=== PATIENT | male | born 1960 | race American Indian/Alaskan Native ===

== ENCOUNTER 2022-04-10 14:55 | Emergency (ER) | payer MEDICARE ==
[2022-04-10 17:01] LABS: Alanine Aminotransferase 41 units/L (7-56); Albumin 4.1 g/dL (3.9-5); BUN/Creatinine Ratio 15; Blood Urea Nitrogen 19 mg/dL (9-20); Calcium 8.9 mg/dL (8.4-10.2); Hemolysis Index 0
[2022-04-10 17:11] LABS: Basophils # (Auto) 0.1 K/mm3 (0.0-0.1); Basophils % (Auto) 0.6 % (0.0-1.8); Eosinophils % (Auto) 0.1 % (0.0-4.3); Hematocrit 34.8 % (35.5-45.6); Hemoglobin 11.9 gm/dl (11.8-15.2); Lymphocytes # (Auto) 2.1 K/mm3 (1.2-5.4); Lymphocytes % (Auto) 19.9 % (13.4-35.0); Mean Corpuscular HGB Conc 34 % (32-34); Mean Corpuscular Volume 89 fl (84-94); Monocytes # (Auto) 1.2 K/mm3 (0.0-0.8); Monocytes % (Auto) 11.5 % (0.0-7.3); Platelet Count 205 K/mm3 (140-440); Red Cell Distribution Width 13.4 % (13.2-15.2)
--- NOTE | 2022-04-11 08:33 | Emergency Department Report ---
ED General Adult HPI - General Chief complaint: Weakness Stated complaint: WEAK Time Seen by Provider: 04/11/22 08:09 Source: patient Mode of arrival: Ambulatory Limitations: No Limitations - History of Present Illness Initial comments: Patient is a 61-year-old male that came to the ER last night complaining of weakness after working in the sun all day. He has been in the ER over 8 hours at the time provider is seeing him. He states that he feels better. He is ambulatory, nontoxic [id number]. He is taking p.o. Patient's vital signs noted to be normal. He has no chest pain. No shortness of breath. No fever or chills. No abdominal pain. No nausea vomiting diarrhea. Patient denies polyuria polydipsia polyphagia. He reports being compliant with his home medications -: Sudden, hour(s) Associated Symptoms: denies other symptoms, malaise Treatments Prior to Arrival: none - Related Data Allergies Allergy/AdvReac Type Severity Reaction Status Date / Time levofloxacin [From Levaquin] Allergy Itching Verified 04/10/22 15:45 ED Review of Systems ROS: Stated complaint: WEAK Other details as noted in HPI Comment: All other systems reviewed and negative ED Past Medical Hx - Past Medical History Previous Medical History?: Yes Hx Hypertension: Yes Hx Diabetes: Yes Hx Seizures: Yes - Surgical History Past Surgical History?: No - Social History Smoking Status: Never Smoker ED Physical Exam - General Limitations: No Limitations General appearance: alert, in no apparent distress - Head Head exam: Present: atraumatic, normocephalic - Eye Eye exam: Present: normal appearance - ENT ENT exam: Present: mucous membranes moist - Neck Neck exam: Present: normal inspection - Respiratory Respiratory exam: Present: normal lung sounds bilaterally. Absent: respiratory distress - Cardiovascular Cardiovascular Exam: Present: regular rate, normal rhythm. Absent: systolic murmur, diastolic murmur, rubs, gallop - GI/Abdominal GI/Abdominal exam: Present: soft, normal bowel sounds - Rectal Rectal exam: Present: deferred - Extremities Exam Extremities exam: Present: normal inspection - Back Exam Back exam: Present: normal inspection - Neurological Exam Neurological exam: Present: alert, oriented X3 - Psychiatric Psychiatric exam: Present: normal affect, normal mood - Skin Skin exam: Present: warm, dry, intact, normal color. Absent: rash ED Course Vital Signs 04/10/22 04/11/22 04/11/22 15:39 08:44 10:54 Temperature 98.5 F 98.6 F 98.6 F Pulse Rate 90 90 89 Respiratory 17 20 20 Rate Blood Pressure 109/63 Blood Pressure 130/73 138/74 [Left] O2 Sat by Pulse 94 100 98 Oximetry - Reevaluation(s) Reevaluation #1: 04/11/22 09:40 home rx metformin keppra flomax norvasc losartan sertraline toviaz Patient reports he is compliant with his medications and he does not fact have them in his book bag. Patient states that he lives with a friend, however, I suspect that he is homeless. ED Medical Decision Making - Lab Data Result diagrams: 04/10/22 15:57 04/10/22 15:57 - EKG Data -: EKG Interpreted by Me EKG shows normal: sinus rhythm Rate: normal - EKG Data When compared to previous EKG there are: no significant change Interpretation: no acute changes - Radiology Data Radiology results: report reviewed, image reviewed - Medical Decision Making Vital Signs 04/10/22 04/11/22 04/11/22 15:39 08:44 10:54 Temperature 98.5 F 98.6 F 98.6 F Pulse Rate 90 90 89 Respiratory 17 20 20 Rate Blood Pressure 109/63 Blood Pressure 130/73 138/74 [Left] O2 Sat by Pulse 94 100 98 Oximetry Lab Results 04/10/22 04/10/22 04/11/22 Range/Units 15:57 15:57 08:42 WBC 10.6 (4.5-11.0) K/mm3 RBC 3.90 (3.65-5.03) M/mm3 Hgb 11.9 (11.8-15.2) gm/dl Hct 34.8 L (35.5-45.6) % MCV 89 (84-94) fl MCH 31 (28-32) pg MCHC 34 (32-34) % RDW 13.4 (13.2-15.2) % Plt Count 205 (140-440) K/mm3 Lymph % (Auto) 19.9 (13.4-35.0) % [place] % (Auto) 11.5 H (0.0-7.3) % Eos % (Auto) 0.1 (0.0-4.3) % Baso % (Auto) 0.6 (0.0-1.8) % Lymph # (Auto) 2.1 (1.2-5.4) K/mm3 [place] # (Auto) 1.2 H (0.0-0.8) K/mm3 Eos # (Auto) 0.0 (0.0-0.4) K/mm3 Baso # (Auto) 0.1 (0.0-0.1) K/mm3 Seg Neutrophils % 67.9 (40.0-70.0) % Seg Neutrophils # 7.2 (1.8-7.7) K/mm3 Sodium 143 (137-145) mmol/L Potassium 3.6 (3.6-5.0) mmol/L Chloride 104.8 (98-107) mmol/L Carbon Dioxide 28 (22-30) mmol/L Anion Gap 14 mmol/L BUN 19 (9-20) mg/dL Creatinine 1.3 (0.8-1.3) mg/dL Estimated GFR > 60 ml/min BUN/Creatinine Ratio 15 % Glucose 128 H (75-100) mg/dL POC Glucose 167 H (70-105) mg/dL Calcium 8.9 (8.4-10.2) mg/dL Total Bilirubin 0.60 (0.1-1.2) mg/dL AST 32 (5-40) units/L ALT 41 (7-56) units/L Alkaline Phosphatase 70 (35-129) units/L Troponin T < 0.010 (0.00-0.029) ng/mL Total Protein 7.3 (6.3-8.2) g/dL Albumin 4.1 (3.9-5) g/dL Albumin/Globulin Ratio 1.3 % Patient's labs noted to be normal. He is diabetic but his blood sugars are not hypo or hyperglycemic. His troponin has been negative. His twelve-lead is without acute process. His chest x-ray is normal. At the time of exam patient is asking for something to eat/drink. He denies any symptoms. He states he reports much better. He states that he thinks he just overworked in the heat last night. Patient has no symptoms on discharge assessment. He denies chest pain or shortness of breath. He is taking p.o. He is in no acute distress. Patient being discharged home with discharge plan of care including diet, activity, medications and follow-up. He is to see his PCP at [facility]. He verbalizes understanding. - Differential Diagnosis Rule out infection, dehydration, ACS, malingering Critical care attestation.: If time is entered above; I have spent that time in minutes in the direct care of this critically ill patient, excluding procedure time. ED Disposition Clinical Impression: Sun exposure, mild Qualifiers: Encounter type: initial encounter Qualified Code(s): X32.XXXA - Exposure to sunlight, initial encounter Disposition: HOME / SELF CARE / HOMELESS Is pt being admited?: No Does the pt Need Aspirin: No Condition: Stable Instructions: Fatigue Additional Instructions: stay well hydrated avoid heat follow up with pcp referral below for local MD if [place] MD not available continue home meds monitor your blood sugar Referrals: BRITTNEY COOPER MD [Primary Care Provider] - 3-5 Days Time of Disposition: 09:41
--- NOTE | 2022-04-11 09:10 | XRay Report ---
XR chest routine 2V INDICATION / CLINICAL INFORMATION: sob COMPARISON: 11/24/2008 FINDINGS: SUPPORT DEVICES: None. HEART / MEDIASTINUM: No significant abnormality. LUNGS / PLEURA: Bibasilar opacities. Costophrenic sulci are sharp. No pneumothorax. ADDITIONAL FINDINGS: No significant additional findings. IMPRESSION: 1. Right basilar opacities could be related to airspace disease such as pneumonia, correlate clinical ly. Signer Name: Manpreet Lynne MD Signed: 04/11/2022 9:06 AM Workstation Name: [id number]
[2022-04-11 10:55] VITALS: BP 138/74
--- NOTE | 2022-04-11 12:29 | Electrocardiograph Report ---
[facility] Test Date: 2022-04-10 Test Time: 15:50:32 Pat Name: NESSA RG Department: Room: Gender: M Senior Planning Analyst: BEVERLY : 1960 Requested By: ED DOC Order Number: [id number] Reading MD: Jaclyn Petit Measurements Intervals [place] Rate: 91 P: 76 UT: 169 QRS: -19 QRSD: 92 T: 31 QT: 361 QTc: 446 Interpretive Statements Sinus rhythm No previous ECG available for comparison Electronically Signed On 04-11-2022 12:29:26 EDT by Jaclyn Petit
== END 2022-04-11 09:54 | disposition home or self-care (01) ==
LOC: ED 14:55
DX: R53.1 Weakness (principal); L55.9 Sunburn, unspecified; I10 Essential (primary) hypertension; E11.9 Type 2 diabetes mellitus without complications; R56.9 Unspecified convulsions; Z79.899 Other long term (current) drug therapy
CPT/HCPCS: 36415; 71046; 80053; 82962; 84484; 85025; 93005; 99283; 99284